=== PATIENT | male | born 1970 | race Caucasian/White ===

== ENCOUNTER 2022-04-20 07:36 | Emergency (ER) | payer BC, OTHER ==
[~2022-04-20] VITALS: Ht 180.3 cm; Wt 95.1 kg
[2022-04-20 07:52] VITALS: BP 125/70
[2022-04-20] MEDS ORDERED: ACETAMINOPHEN 500 MG TAB PO ONE (08:00)
[2022-04-20] MEDS ORDERED: LEVO750T64 PO ×2 (10:11)
[2022-04-20] MEDS ORDERED: DEXT1SYP9 PO ×2 (10:15)
== END 2022-04-21 17:09 | disposition admitted as inpatient to this hospital (09) ==
LOC: ER 07:36
DX: J18.9 Pneumonia, unspecified organism (principal); Z20.822 Contact with and (suspected) exposure to COVID-19
CPT/HCPCS: 36415; 71046; 87426

== ENCOUNTER 2022-04-20 15:10 | Inpatient (IN) | payer OTHER ==
[~2022-04-20] VITALS: Ht 180.3 cm; Wt 91.4 kg
[~2022-04-20 15:10] MED LIST: DEXT1SYP9 PO; LEVO750T64 PO
[2022-04-20 16:48] LABS: Basophils # (auto) 0 10 ^3/uL (0-0.2); Basophils % (auto) 0.3 % (0.0-2.0); Eosinophils # (auto) 0 10 ^3/uL (0-0.8); Eosinophils % (auto) 0.2 % (0.0-7.0); Hematocrit 44.7 % (41.0-53.0); Hemoglobin 15.3 g/dL (13.5-17.5); Lymphocytes # (auto) 0.2 10 ^3/uL (0.4-5.4); Lymphocytes % (auto) 2.5 % (10.0-50.0); Mean Corpuscular Hemoglobin 32.5 pg (28.0-32.0); Mean Corpuscular Hgb Conc. 34.2 g/dL (32.0-36.0); Mean Corpuscular Volume 95.2 fL (80.0-100.0); Monocytes # (auto) 0.5 10 ^3/uL (0-1.3); Monocytes % (auto) 7.4 % (0.0-12.0); Neutrophils # (auto) 6.5 10 ^3/uL (1.6-8.6); Neutrophils % (auto) 89.6 % (37.0-80.0); Red Cell Distribution Width 12.6 % (11.8-14.3); White Blood Cell 7.2 10^3/uL (4.4-10.8)
[2022-04-20 17:13] LABS: Albumin 3.5 g/dL (3.4-5.0); BUN/Creatinine Ratio 13.3; Bilirubin, Total 0.5 mg/dL (0.2-1.0); Calcium 8.5 mg/dL (8.5-10.1); Potassium 4.2 mmol/L (3.5-5.1); Total Protein 6.7 g/dL (6.4-8.2)
[2022-04-20] MEDS ORDERED: cefTRIAXone 1GM/50ML D5W 50 ML IV ONE (17:15)
[2022-04-20] MEDS ORDERED: AZITHROMYCIN 500MG/ 250ML 250 ML IV ONE (17:15)
[2022-04-20] MEDS ORDERED: ONDANSETRON HCL 4 MG/2 ML VIAL IV PRN (21:15)
[2022-04-20] MEDS ORDERED: MORPHINE SULFATE INJ 2 MG/ml SYRG IV PRN (21:15)
[2022-04-20] MEDS ORDERED: ALBUTEROL SULF 2.5 MG/0.5ML(0.5%) NEB SOLN NEB ONE (21:15)
[2022-04-20] MEDS ORDERED: IPRATROPIUM BROM 0.5 MG/2.5ML INH SOL NEB ONE (21:15)
[2022-04-20] MEDS ORDERED: methylPREDNISolone SOD SUCC 125 MG/2 ML VL IV ONE (21:15)
[2022-04-20] MEDS ORDERED: NITROGLYCERIN 0.4 MG SL TAB SL PRN (21:15)
[2022-04-20 22:48] VITALS: BP 129/70
[2022-04-20] MEDS: ACETAMINOPHEN 325 MG TAB PO PRN (22:55)
[2022-04-20] MEDS: guaiFENesin-DM 100/10mg/5ml SYR PO PRN (22:57)
[2022-04-21 02:16] LABS: Urine Bacteria FEW /hpf (None Seen); Urine Blood Negative /uL (Negative); Urine Specific Gravity 1.002 (1.001-1.035); Urine Sperm PRESENT /hpf (None Seen); Urine WBC <1 /hpf (0 - 3)
[2022-04-21] MEDS: TEMAZEPAM 15 MG CAP PO PRN ×2 (06:13→20:49)
[2022-04-21] MEDS: guaiFENesin-DM 100/10mg/5ml SYR PO PRN ×2 (06:13→18:27)
[2022-04-21 07:34] LABS: Basophils # (auto) 0 10 ^3/uL (0-0.2); Basophils % (auto) 0.4 % (0.0-2.0); Eosinophils # (auto) 0 10 ^3/uL (0-0.8); Hematocrit 44.6 % (41.0-53.0); Hemoglobin 15.4 g/dL (13.5-17.5); Lymphocytes # (auto) 0.2 10 ^3/uL (0.4-5.4); Lymphocytes % (auto) 3.8 % (10.0-50.0); Mean Corpuscular Hemoglobin 33.1 pg (28.0-32.0); Mean Corpuscular Hgb Conc. 34.5 g/dL (32.0-36.0); Mean Corpuscular Volume 95.9 fL (80.0-100.0); Monocytes # (auto) 0.1 10 ^3/uL (0-1.3); Monocytes % (auto) 1.9 % (0.0-12.0); Neutrophils # (auto) 4.6 10 ^3/uL (1.6-8.6); Neutrophils % (auto) 93.9 % (37.0-80.0); Red Blood Cells 4.65 10^6/uL (4.5-5.90); Red Cell Distribution Width 12.4 % (11.8-14.3); White Blood Cell 4.9 10^3/uL (4.4-10.8)
[2022-04-21 08:23] LABS: BUN/Creatinine Ratio 11.7; Calcium 8.5 mg/dL (8.5-10.1); Potassium 4.2 mmol/L (3.5-5.1)
[2022-04-21] MEDS: cefTRIAXone 1GM/50ML D5W 50 ML IV SCH (17:03)
[2022-04-21] MEDS: ENOXAPARIN SOD 40 MG/0.4 ML SYRINGE SC SCH (17:03)
[2022-04-21] MEDS: ACETAMINOPHEN 325 MG TAB PO PRN (18:27)
[2022-04-21] MEDS: AZITHROMYCIN 500MG/ 250ML 250 ML IV SCH (18:28)
[2022-04-21 19:30] VITALS: BP 102/41
[2022-04-21] MEDS: ALBUTEROL SULF 2.5 MG/0.5ML(0.5%) NEB SOLN NEB PRN (19:45)
[2022-04-21] MEDS: ACETYLCYSTEINE 10 %(100MG/ML) SOL 4ML NEB SCH (19:45)
[2022-04-21] MEDS: IPRATROPIUM BROM 0.5 MG/2.5ML INH SOL NEB PRN (19:45)
[2022-04-21 22:00] VITALS: BP 102/41
[2022-04-22] MEDS: IPRATROPIUM BROM 0.5 MG/2.5ML INH SOL NEB PRN ×4 (00:02→19:48)
[2022-04-22] MEDS: ALBUTEROL SULF 2.5 MG/0.5ML(0.5%) NEB SOLN NEB PRN ×4 (00:02→19:48)
[2022-04-22] MEDS: ACETYLCYSTEINE 10 %(100MG/ML) SOL 4ML NEB SCH ×4 (00:02→19:48)
[2022-04-22 05:00] VITALS: BP 115/71
[2022-04-22 08:00] VITALS: BP 119/81
[2022-04-22] MEDS: cefTRIAXone 1GM/50ML D5W 50 ML IV SCH (08:05)
[2022-04-22] MEDS: ENOXAPARIN SOD 40 MG/0.4 ML SYRINGE SC SCH (08:11)
[2022-04-22] MEDS: guaiFENesin-DM 100/10mg/5ml SYR PO PRN ×3 (08:23→22:38)
[2022-04-22 09:00] VITALS: BP 130/79
[2022-04-22] MEDS ORDERED: predniSONE 20 MG TAB PO ONE (11:15)
[2022-04-22 17:00] VITALS: BP 119/81
[2022-04-22] MEDS: AZITHROMYCIN 500MG/ 250ML 250 ML IV SCH (19:24)
[2022-04-22 20:00] VITALS: BP 100/61
[2022-04-22 22:00] VITALS: BP 100/61
[2022-04-22] MEDS: TEMAZEPAM 15 MG CAP PO PRN (22:37)
[2022-04-23] MEDS: ALBUTEROL SULF 2.5 MG/0.5ML(0.5%) NEB SOLN NEB PRN ×3 (01:06→13:02)
[2022-04-23] MEDS: ACETYLCYSTEINE 10 %(100MG/ML) SOL 4ML NEB SCH ×3 (01:06→13:02)
[2022-04-23] MEDS: IPRATROPIUM BROM 0.5 MG/2.5ML INH SOL NEB PRN ×3 (01:06→13:02)
[2022-04-23 05:00] VITALS: BP 125/78
[2022-04-23 08:30] VITALS: BP 136/79
[2022-04-23] MEDS: cefTRIAXone 1GM/50ML D5W 50 ML IV SCH (08:56)
[2022-04-23] MEDS: ENOXAPARIN SOD 40 MG/0.4 ML SYRINGE SC SCH (08:56)
[2022-04-23] MEDS ORDERED: predniSONE 20 MG TAB PO SCH (10:00)
[2022-04-23 12:30] VITALS: BP 141/85
[2022-04-23 16:00] VITALS: BP 138/85
== END 2022-04-23 16:07 | disposition home or self-care (01) | DRG 193 ==
LOC: ER 15:19 → TELE 21:15 → TELE-WESTW 04-21 17:21 → WEST WING 04-22 12:08
PROVIDERS: ADMIT Nurse Practitioner; ATTEND Internal Medicine
DX: J18.0 Bronchopneumonia, unspecified organism (principal); J96.01 Acute respiratory failure with hypoxia; J45.901 Unspecified asthma with (acute) exacerbation; Z20.822 Contact with and (suspected) exposure to COVID-19; R00.0 Tachycardia, unspecified; Z88.5 Allergy status to narcotic agent
CPT/HCPCS: 36415; 71045; 71250; 80048; 80053; 81001; 83036; 83880; 84443; 84484; 85025; 85379; 87426; 94640; 96365; 96368; 96375; G0378; J0696